=== PATIENT | female | born 1955 | race Caucasian/White ===

== ENCOUNTER 2024-07-29 16:29 | Emergency (ER) | payer MEDICARE, SELFPAY ==
[2024-07-29 17:07] VITALS: BP 117/68; PULSE 84; RESP 18; TEMP 36.7; O2SAT 100; BMI 17.5
--- NOTE | 2024-07-29 17:08 | ED.GENADULT ---
HPI - General Adult General Chief complaint: Nausea/Vomiting/Diarrhea Stated complaint: feels dehydrated super dizzy Time Seen by Provider: 07/29/24 21:03 Source: patient Mode of arrival: ambulatory Limitations: no limitations History of Present Illness ED Provider: DR. Gutierrez HPI narrative: This is a 68-year-old female with history of UC moved from [place] to live in [place] in the process of looking for PCP came in today for evaluation of diarrhea for the past 2 weeks described as nonbloody watery diarrhea, sometimes patient has blood in stool, patient noticed bright red blood in the stool for the past 2 weeks however has not seen any blood in the stool for the past 3 days, no abdominal pain, intermittent nausea with no vomiting, no fever, no chills. Passing flatus normally, no dysuria, no frequency urination. Intra-abdominal surgery significant for appendectomy. Related Data Previous Rx's ?Medication ?Instructions ?Recorded nitrofurantoin 100 mg PO Q12H 7 days #14 caps 07/30/24 monohydrate/macrocrystals 100 mg capsule (Macrobid) Allergies Allergy/AdvReac Type Severity Reaction Status Date / Time lactose Allergy Diarrhea Verified 07/29/24 17:09 Review of Systems Review of Systems: All other systems are reviewed and are negative Constitutional: Reports as per HPI and Reports no additional constitutional complaints Eyes: Reports as per HPI and Reports no additional eye complaints Reports system reviewed and no additional complaints, except as documented Cardiovascular: Reports as per HPI and Reports no additional cardiovascular complaints Respiratory: Reports as per HPI and Reports no additional respiratory complaints Gastrointestinal: Reports as per HPI and Reports no additional gastrointestinal complaints Genitourinary: Reports no additional female genitourinary complaints Musculoskeletal: Reports no additional musculoskeletal complaints Skin/Breast: Reports system reviewed and no additional complaints, except as docu Psychiatric: Reports no additional psychiatric complaints Endocrine: Reports no additional endocrine complaints Hematologic/Lymphatic: Reports no additional hematologic/lymphatic complaints Allergic/Immunologic: Reports no additional allergic/immunologic complaints Reports system reviewed and no additional complaints, except as documented and Reports Abnormal speech present [facility] Social History Social History Smoked in Last 30 Days: No Use of substances other than those prescribed or required for medical reasons: No Advance Directives: No Advance Directives Information Provided: Yes Physical Exam ED Vital Signs: Vital Signs - 24 hr 07/29/24 17:07 07/29/24 19:40 07/29/24 21:14 Temperature 98.1 F 97.6 F 97.5 F Pulse Rate 84 77 75 Respiratory Rate 18 17 17 Blood Pressure 117/68 135/81 131/43 L Pulse Oximetry 100 98 97 Oxygen Delivery Method Room Air Room Air Room Air 07/29/24 22:20 07/29/24 23:44 07/30/24 01:33 Temperature 97.4 F 97.6 F 97.4 F Pulse Rate 40 L 87 70 Respiratory Rate 14 16 16 Blood Pressure 114/64 110/69 111/60 Pulse Oximetry 98 95 99 Oxygen Delivery Method Room Air Room Air Room Air BMI result Body Mass Index 17.5 Vital signs have been reviewed and appear to be correct. Blood pressure elevated. Heart rate normal. Respiratory rate normal. Temperature normal. Oxygen saturation normal. Appearance: Alert. Oriented X3. No acute distress. Head: Normal external exam. Normocephalic. Atraumatic. No Tate signs noted. No raccoon eyes noted Eyes: PERRLA. EOMI. Conjunctiva and sclera normal. Eyelids normal. ENT: TM's Normal. Pharynx normal. Uvula midline. Moist mucous membranes. No trismus noted. No drooling noted. No muffled voice noted. Neck: Normal inspection. Neck supple. FROM. No adenopathy. Thyroid Normal. No meningeal signs. No neck mass noted. CVS: Normal heart rate and rhythm. Heart sound normal. No murmurs noted. Pulses normal throughout. Respiratory: No respiratory distress. Painless inspiration. Breath sounds normal. No wheezes/rales/rhonchi noted. Chest nontender. No accessory muscle usage noted or decreased air movement noted. Abdomen: Soft and nontender. Bowel sounds normal in all 4 quadrants. No distention noted. No organomegaly noted. No visible injury noted. Rectal exam: Patient declined will prefer to be referred to a GI doctor. Back: No CVA tenderness. Full range of motion noted. Skin: Skin warm and dry. Normal skin color. Normal skin turgor. No rashes/lesions/lacerations noted. Extremities: No lower extremity edema. Extremities exhibit normal range of motion. Extremities nontender. Neuro: Oriented X 3. Cranial nerve exam: II-XII are grossly intact No motor deficit. No sensory deficit. Reflexes normal. Course Course Course Narrative: This is a rapid medical exam performed by Yuridia Winkler NP: Additional HPI, ROS, PE not included below will be deferred to primary provider. Patient is a 68-year-old female with history of UC presenting with 2 weeks of nausea, vomiting, diarrhea, hematochezia. Feels dehydrated. Poor PO intake. Appears pale in triage. Lost 6# in 13 days. Plan: labs, UA Reevaluation(s) Reevaluation #1: Diarrhea for 2 weeks, no abdominal pain, inflammatory markers are within normal, patient declined a rectal bleed currently and patient declined rectal examination. Stable H&H, no dizziness, no CP. UA reveals UTI will start on Macrobid and encouraged to drink plenty of fluids. Will discharge the patient to keep looking for PCP and referral to GI. Time: 21:14 Medical Decision Making Differential Diagnosis Differential Diagnoses: The differential diagnosis associated with the presentation includes (Dehydration, electrolyte derangement, severe anemia, rectal bleed, UTI.) Admission/Observation Consideration of admission/observation: Escalation of care including admission/observation considered Lab Data MDM Lab Attestation statement: I reviewed the patient's lab results. 07/29/24 17:20 07/29/24 17:20 Labs: Lab Results 07/29/24 07/29/24 07/29/24 Range/Units 17:20 19:55 23:44 WBC 5.6 (4.8-10.8) X10*3/uL RBC 4.81 (4.20-5.50) X10*6/uL Hgb 13.1 (12.0-16.0) g/dl Hct 40.3 (37.0-47.0) % MCV 83.8 (80.0-98.0) fL MCH 27.2 (27.0-33.0) pg MCHC 32.5 (31.0-35.0) g/dl RDW 13.4 (11.0-16.0) % Plt Count 224 (160-400) X10*3/uL MPV 10.3 (9.4-12.3) fL Immature Gran % (Auto) 0.0 (0.0-0.4) % Neut % (Auto) 55.3 (45-73) % Lymph % (Auto) 37.3 (20-40) % [place] % (Auto) 7.0 (2-11) % Eos % (Auto) 0.0 (0-4) % Baso % (Auto) 0.4 (0-2) % Lymph # (Auto) 2.1 (1.2-4.9) X10*3/uL [place] # (Auto) 0.4 (0.1-1.2) X10*3/uL Eos # (Auto) 0.0 (0.0-0.4) X10*3/uL Baso # (Auto) 0.0 (0.0-0.2) X10*3/uL Abs Immat Gran (auto) 0.00 (0.00-0.03) X10*3/uL Absolute Neuts (auto) 3.1 (2.0-8.3) x10*3/uL Absolute Nucleated RBC 0.000 (0.0-0.012) X10*3/uL Nucleated RBC % (auto) 0.0 (0.0-0.2) /100WBC ESR 8 (0-20) MM/HR Sodium 140 (135-145) mmol/L Potassium 4.6 (3.3-5.1) mmol/L Chloride 107 (96-108) mmol/L Carbon Dioxide 23 (22-29) mmol/L Anion Gap 15 (12-20) BUN 9 (9-16) mg/dL Creatinine 0.73 (0.5-1.4) mg/dL Estim Creat Clear Calc 49.9 Estimated GFR > 60 Random Glucose 92 (60-115) mg/dL Calcium 9.5 (8.4-10.2) mg/dL Magnesium 2.3 (1.6-2.6) mg/dL Total Bilirubin 0.8 (0.0-1.0) mg/dL AST 32 H (5-31) U/L ALT 21 (0-31) U/L Alkaline Phosphatase 59 (39-117) U/L C-Reactive Protein 0.46 (< or = 0.50) mg/dL Total Protein 7.3 (6.5-8.0) g/dL Albumin 4.5 (3.5-5.0) g/dL Urine Color Yellow Urine Appearance Clear Urine pH 6.0 (5.0-9.0) Ur Specific [place] 1.020 (1.005-1.025) Urine Protein Negative (Neg-Trace) mg/dL Urine Glucose (UA) Negative (Negative) mg/dL Urine Ketones 40 (Negative) mg/dL Urine Blood Negative (Negative) Urine Nitrite Negative (Negative) Ur Leukocyte Esterase Large (3+) H (Negative) Urine RBC 0-2 (0-2) /HPF Urine WBC 21-50 H (0-5) /HPF Ur Squamous Epith Cells 3-5 (0-2) /HPF Urine Bacteria None Seen (None Seen) Hyaline Casts 0-2 (0-2) /LPF Blood Type O Positive Antibody Screen NEGATIVE Discharge Plan Discharge Clinical Impression: Diarrhea, Acute UTI Patient Disposition: Home, Self-Care Instructions: Acute Diarrhea (ED) Additional Instructions: Drink plenty of fluids Prescriptions: New nitrofurantoin monohyd/m-cryst [Macrobid] 100 mg capsule 100 mg PO Q12H 7 Days Qty: 14 0RF Rx Instructions: must administer with a meal/food Referrals: oRseanne Fuentes MD [Physician] - Print Language: Romanian
[2024-07-29 17:24] LABS: MANUAL DIFF FLAG NO
[2024-07-29 17:47] LABS: Alanine Aminotransferase 21 U/L (0-31); Albumin Level 4.5 g/dL (3.5-5.0); Anion Gap 15 (12-20); Aspartate Amino Transferase 32 U/L (5-31); Bilirubin Total 0.8 mg/dL (0.0-1.0); Blood Urea Nitrogen 9 mg/dL (9-16); C Reactive Protein 0.46 mg/dL (< or = 0.50); Calcium 9.5 mg/dL (8.4-10.2); Carbon Dioxide 23 mmol/L (22-29); Chloride 107 mmol/L (96-108); Creatinine Clr Calc Pharmacy 49.9; Estimated Glomerular Filt Rate > 60; Glucose Random 92 mg/dL (60-115); Magnesium 2.3 mg/dL (1.6-2.6); Potassium 4.6 mmol/L (3.3-5.1); Sodium 140 mmol/L (135-145); Total Protein 7.3 g/dL (6.5-8.0)
[2024-07-29 17:53] LABS: Basophils Percent Auto 0.4 % (0-2); Hematocrit 40.3 % (37.0-47.0); Hemoglobin 13.1 g/dl (12.0-16.0); Lymphocytes Absolute Auto 2.1 X10*3/uL (1.2-4.9); Lymphocytes Percent Auto 37.3 % (20-40); Mean Corpuscular HGB Conc 32.5 g/dl (31.0-35.0); Mean Corpuscular Hemoglobin 27.2 pg (27.0-33.0); Mean Corpuscular Volume 83.8 fL (80.0-98.0); Mean Platelet Volume 10.3 fL (9.4-12.3); Monocytes Absolute Auto 0.4 X10*3/uL (0.1-1.2); Neutrophils Absolute Auto 3.1 x10*3/uL (2.0-8.3); Neutrophils Percent Auto 55.3 % (45-73); Platelet Count 224 X10*3/uL (160-400); Red Blood Count 4.81 X10*6/uL (4.20-5.50); Red Cell Distribution Width 13.4 % (11.0-16.0); White Blood Count 5.6 X10*3/uL (4.8-10.8)
[2024-07-29 18:00] LABS: Erythrocyte Sedimentation Rate 8 MM/HR (0-20)
[2024-07-29 19:40] VITALS: BP 135/81; PULSE 77; RESP 17; TEMP 36.4; O2SAT 98
[2024-07-29 21:14] VITALS: BP 131/43; PULSE 75; RESP 17; TEMP 36.4; O2SAT 97
[2024-07-29 22:05] LABS: Alkaline Phosphatase 59 U/L (39-117)
[2024-07-29 22:20] VITALS: BP 114/64; PULSE 40; RESP 14; TEMP 36.3; O2SAT 98
--- NOTE | 2024-07-29 22:20 | MHC.EDTECH ---
pt still unable to provide urine sample.
[2024-07-29 23:44] VITALS: BP 110/69; PULSE 87; RESP 16; TEMP 36.4; O2SAT 95
[2024-07-29 23:51] LABS: Appearance Urine Clear; Color Urine Yellow; Glucose Urine UA Negative (Negative); Leukocyte Esterase Urine Large (3+) (Negative); Nitrite Urine Negative (Negative); UMIC TRIGGER UACC YES; Urine Blood Negative (Negative); Urine Ketones 40 mg/dL (Negative); Urine Protein Negative (Neg-Trace)
[2024-07-30 00:51] LABS: Bacteria Urine None Seen (None Seen); Hyaline Casts Urine 0-2 /LPF (0-2); RBC Urine 0-2 /HPF (0-2); UACC Culture Trigger YES; WBC Urine 21-50 /HPF (0-5)
[2024-07-30 01:33] VITALS: BP 111/60; PULSE 70; RESP 16; TEMP 36.3; O2SAT 99
[2024-07-30] MEDS: Nitrofurantoin Monohyd/M-Cryst 100 MG CAPSULE PO (01:43)
[2024-07-30 01:50] VITALS: BP 111/60; PULSE 70; RESP 16; TEMP 36.3; O2SAT 99
== END 2024-07-30 01:52 | disposition home or self-care (01) ==
PROVIDERS: Registered Nurse Emergency; Emergency Provider Emergency Medicine
DX: R19.7 Diarrhea, unspecified (principal); N39.0 Urinary tract infection, site not specified
CPT/HCPCS: 36415; 80053; 81001; 83735; 85025; 85652; 86140; 86850; 86900; 86901; 87086; 87147; 99284